=== PATIENT | female | born 1995 | race Caucasian/White ===

== ENCOUNTER 2016-07-22 22:24 | Emergency (ER) | payer SELFPAY ==
[~2016-07-22] VITALS: Ht 154.9 cm; Wt 65.0 kg
[2016-07-22 22:32] VITALS: Ht 154.9 cm; Wt 65.0 kg
== END 2016-07-22 22:58 | disposition left against medical advice (07) ==
LOC: E/R 22:24
DX: Z53.21 Procedure and treatment not carried out due to patient leaving prior to being seen by health care provider (principal)

== ENCOUNTER 2018-02-22 02:16 | Inpatient (IN) | END 2018-02-24 18:30 | disposition home or self-care (01) | DRG 418 ==

== ENCOUNTER 2018-03-23 13:16 | Emergency (ER) | END 2018-03-23 15:49 | disposition home or self-care (01) ==

== ENCOUNTER 2018-12-18 00:28 | Emergency (ER) | payer SELFPAY ==
[~2018-12-18] VITALS: Ht 162.6 cm; Wt 61.2 kg
[~2018-12-18 00:28] MED LIST: BACITUD TOP; CIPR500T4 PO; METR500T PO
[2018-12-18 00:44] VITALS: Ht 162.6 cm; Wt 61.2 kg
[2018-12-18] MEDS ORDERED: LACTATED RINGER'S 1,000 ML IV STA (01:49)
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
[2018-12-18] MEDS ORDERED: HYDR-4011 PO (02:36)
[2018-12-18 02:41] VITALS: BP 110/72; PULSE 100; RESP 20
[2018-12-18] MEDS ORDERED: HYDROCODONE/APAP (5/325) TAB PO ONE (03:00)
== END 2018-12-18 02:43 | disposition home or self-care (01) ==
LOC: E/R 00:28
DX: G89.18 Other acute postprocedural pain (principal); F17.210 Nicotine dependence, cigarettes, uncomplicated; R06.02 Shortness of breath; Z93.0 Tracheostomy status
CPT/HCPCS: 71045; 80053; 81025; 84484; 85025; 99284; J7120

== ENCOUNTER 2018-12-29 01:08 | Emergency (ER) | payer SELFPAY ==
[~2018-12-29] VITALS: Ht 162.6 cm; Wt 59.6 kg
[~2018-12-29 01:08] MED LIST changes: +HYDR-3980 PO; +HYDR-4011 PO; +IBUP-1542 PO; +NALO4SPR NS
[2018-12-29 01:12] VITALS: Ht 162.6 cm; Wt 59.6 kg
[2018-12-29] MEDS ORDERED: KETOROLAC 30 MG INJ IM STA (02:19)
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
[2018-12-29] MEDS ORDERED: ONDANSETRON (ODT) 4 MG TAB ODT STA (04:32)
[2018-12-29 04:51] VITALS: BP 129/87; PULSE 91; RESP 20
[2018-12-29] MEDS ORDERED: HYDROCODONE/APAP (10/325) TAB PO ONE (05:00)
[2018-12-29] MEDS ORDERED: FAMOTIDINE 20 MG TAB PO ONE (05:00)
== END 2018-12-29 05:15 | disposition home or self-care (01) ==
LOC: FTE 01:08
DX: S82.252A Displaced comminuted fracture of shaft of left tibia, initial encounter for closed fracture (principal); F17.210 Nicotine dependence, cigarettes, uncomplicated; X58.XXXA Exposure to other specified factors, initial encounter; Y92.9 Unspecified place or not applicable
CPT/HCPCS: 29505; 73562; 81025; 93971; J1885; 96372